=== PATIENT | female | born 1985 | race Hispanic/Latino ===

== ENCOUNTER 2017-07-24 23:27 | Emergency (ER) | payer SELFPAY ==
[~2017-07-24] VITALS: Ht 157.5 cm; Wt 98.8 kg
[~2017-07-24 23:27] MED LIST: ATENOLOL25 MG PO; ATIVAN1 MG PO; CLONAZEPAM1 M1 PO; CLONAZEPAM1 MG PO; HYDROXYZINE HCL25 M1 PO; METHIMAZOLE5 MG PO; POTASSIUM IODIDE PO; PRE-NATAL PO; PREVACID30 M2 PO; ULTRAM50 M1 PO
[2017-07-24] MEDS ORDERED: LEVOTHYROXIN25 MC1 PO (23:36)
[2017-07-24] MEDS ORDERED: KLONOPIN1 MG PO (23:37)
[2017-07-25 00:15] LABS: HEMATOCRIT 34.1 % (37.0-47.0); IMMATURE GRANULOCYTES 0.3 % (0.0-1.0); MEAN CELL VOLUME 88.3 fL CALC (80.0-100.0); MEAN CORPUSCULAR HGB 31.1 pG CALC (26.0-32.0); MEAN CORPUSCULAR HGB CONC 35.2 g/L CALC (32.0-36.0); NEUT# 5.26 thou/uL (2.00-7.15); RED BLOOD COUNT 3.86 mill/uL (4.20-5.60)
[2017-07-25 00:26] LABS: ALBUMIN 4.2 g/dL (3.2-5.0); ALKALINE PHOSPHATASE 58 u/l (38-126); ANION GAP 13 (6-22 (CALC)); BILIRUBIN, TOTAL 0.3 mg/dL (0.0-1.4); BUN 14 mg/dL (7-17); BUN/CREATININE RATIO 24 (12-20 (CALC)); CALCIUM 9.5 mg/dL (8.4-10.2); CARBON DIOXIDE 25 mmol/l (22-30); CHLORIDE 106 mmol/l (95-108); CREATININE 0.6 mg/dL (0.5-1.0); GFR > 60 ML/MIN (>=60 (CALC)); GFR FOR AFR.AMER. > 60 ML/MIN (>=60 (CALC)); GLUCOSE 95 mg/dL (65-105); POTASSIUM 3.6 mmol/l (3.5-5.1); SGOT/AST 18 u/l (14-36); SGPT/ALT 37 u/l (9-52); SODIUM 141 mmol/l (137-146); TOTAL PROTEIN 8.1 g/dL (6.3-8.2)
[2017-07-25 00:38] LABS: MYOGLOBIN 17 ng/mL (0 - 62)
[2017-07-25 01:45] VITALS: BP 123/87
[2017-07-25 02:33] LABS: TSH, 3RD GENERATION 3.88 uIU/mL (0.47 - 4.68)
== END 2017-07-25 01:45 | disposition home or self-care (01) | DRG 313 ==
LOC: ED 23:27
PROVIDERS: Emergency Medicine
DX: R07.89 Other chest pain (principal); I10 Essential (primary) hypertension; F41.9 Anxiety disorder, unspecified; E04.9 Nontoxic goiter, unspecified

== ENCOUNTER 2017-08-10 15:07 | Emergency (ER) | payer SELFPAY ==
[~2017-08-10] VITALS: Ht 157.5 cm; Wt 100.0 kg
[~2017-08-10 15:07] MED LIST changes: +KLONOPIN1 MG PO; +LEVOTHYROXIN25 MC1 PO
[2017-08-10] MEDS ORDERED: LEXAPRO10 MG PO (15:17)
[2017-08-10] MEDS ORDERED: LEVOTHYROXIN50 MCG PO (15:25)
[2017-08-10] MEDS ORDERED: CLONAZEPAM1 MG PO (15:26)
[2017-08-10 15:30] VITALS: BP 115/69
== END 2017-08-10 15:52 | disposition home or self-care (01) | DRG 880 ==
LOC: ED 15:07
DX: F41.9 Anxiety disorder, unspecified (principal); R42 Dizziness and giddiness; R00.2 Palpitations
CPT/HCPCS: J2060

== ENCOUNTER 2018-02-08 10:52 | Emergency (ER) | payer SELFPAY ==
[~2018-02-08] VITALS: Ht 157.5 cm; Wt 106.0 kg
[~2018-02-08 10:52] MED LIST changes: +LEVOTHYROXIN50 MCG PO; +LEXAPRO10 MG PO
[2018-02-08 12:11] LABS: URINE BILIRUBIN - DIPSTICK NEGATIVE (NEGATIVE); URINE BLOOD DIPSTICK SMALL (NEGATIVE); URINE COLOR YELLOW; URINE GLUCOSE - DIPSTICK NEGATIVE (NEGATIVE); URINE KETONE TRACE mg/dL (NEGATIVE); URINE LEUK ESTERASE NEGATIVE (NEGATIVE); URINE NITRITE - DIPSTICK NEGATIVE (Negative); URINE PH 6.5 (4.5-8.0); URINE PROTEIN - DIPSTICK NEGATIVE (NEG-TRACE); URINE SPECIFIC GRAVITY 1.025; URINE UROBILINOGEN - DIPSTICK 0.2 E.U./dL (0.2)
[2018-02-08 12:17] LABS: URINE CLARITY CLEAR
[2018-02-08 12:47] VITALS: BP 109/70
== END 2018-02-08 12:47 | disposition home or self-care (01) | DRG 781 ==
LOC: ED 10:52
PROVIDERS: Family Medicine
DX: O26.891 Other specified pregnancy related conditions, first trimester (principal); M54.5 Low back pain; R10.2 Pelvic and perineal pain; Z3A.09 9 weeks gestation of pregnancy

== ENCOUNTER 2018-03-15 20:43 | Emergency (ER) | payer SELFPAY ==
[~2018-03-15] VITALS: Ht 157.5 cm; Wt 106.8 kg
[2018-03-15 21:00] VITALS: BP 125/89
[2018-03-15] MEDS ORDERED: PRENATA3 PO (21:08)
[2018-03-15 22:27] LABS: URINE BILIRUBIN - DIPSTICK NEGATIVE (NEGATIVE); URINE BLOOD DIPSTICK TRACE-INTACT (NEGATIVE); URINE COLOR YELLOW; URINE GLUCOSE - DIPSTICK NEGATIVE (NEGATIVE); URINE KETONE NEGATIVE (NEGATIVE); URINE LEUK ESTERASE NEGATIVE (NEGATIVE); URINE NITRITE - DIPSTICK NEGATIVE (Negative); URINE PH 7.5 (4.5-8.0); URINE PROTEIN - DIPSTICK NEGATIVE (NEG-TRACE); URINE UROBILINOGEN - DIPSTICK 0.2 E.U./dL (0.2)
[2018-03-15 22:31] LABS: URINE CLARITY CLEAR
[2018-03-15 22:40] LABS: INFLUENZA A NONE DETECTED (NONE DETECT); INFLUENZA B NONE DETECTED (NONE DETECT)
[2018-03-15] MEDS ORDERED: AMOXICILLIN500 MG PO (22:42)
== END 2018-03-15 23:05 | disposition home or self-care (01) | DRG 781 ==
LOC: ED 20:43
PROVIDERS: Emergency Medicine
DX: O99.519 Diseases of the respiratory system complicating pregnancy, unspecified trimester (principal); E03.9 Hypothyroidism, unspecified; J02.9 Acute pharyngitis, unspecified; O99.280 Endocrine, nutritional and metabolic diseases complicating pregnancy, unspecified trimester; Z3A.00 Weeks of gestation of pregnancy not specified

== ENCOUNTER 2018-05-20 16:15 | Emergency (ER) | payer SELFPAY ==
[~2018-05-20] VITALS: Ht 157.5 cm; Wt 110.0 kg
[~2018-05-20 16:15] MED LIST changes: +AMOXICILLIN500 MG PO; +PRENATA3 PO
[2018-05-20 17:15] VITALS: BP 110/61
== END 2018-05-20 17:15 | disposition home or self-care (01) | DRG 149 ==
LOC: ED 16:15
DX: R42 Dizziness and giddiness (principal); O99.282 Endocrine, nutritional and metabolic diseases complicating pregnancy, second trimester; E03.9 Hypothyroidism, unspecified; O99.342 Other mental disorders complicating pregnancy, second trimester; F41.9 Anxiety disorder, unspecified; Z79.899 Other long term (current) drug therapy; Z3A.20 20 weeks gestation of pregnancy

== ENCOUNTER 2018-08-04 02:26 | Emergency (ER) | payer SELFPAY ==
[~2018-08-04] VITALS: Ht 157.5 cm; Wt 110.2 kg
[2018-08-04 02:48] VITALS: BP 134/63
== END 2018-08-04 03:11 | DRG 781 ==
LOC: ED 02:26
DX: O26.893 Other specified pregnancy related conditions, third trimester (principal); R10.30 Lower abdominal pain, unspecified; O99.283 Endocrine, nutritional and metabolic diseases complicating pregnancy, third trimester; E03.9 Hypothyroidism, unspecified; O99.343 Other mental disorders complicating pregnancy, third trimester; F41.9 Anxiety disorder, unspecified; Z3A.35 35 weeks gestation of pregnancy

== ENCOUNTER 2018-12-23 22:53 | Emergency (ER) | payer SELFPAY ==
[~2018-12-23] VITALS: Ht 157.5 cm; Wt 105.0 kg
[2018-12-23 23:48] LABS: HEMATOCRIT 37.6 % (37.0-47.0); HEMOGLOBIN 12.7 g/dl (12.0-16.0); IMMATURE GRANULOCYTES 0.5 % (0.0-5.0); MEAN CELL VOLUME 86.6 fL CALC (80.0-100.0); MEAN CORPUSCULAR HGB 29.3 pG CALC (26.0-32.0); MEAN CORPUSCULAR HGB CONC 33.8 g/L CALC (32.0-36.0); NEUT# 5.07 thou/uL (2.00-7.15); RED BLOOD COUNT 4.34 mill/uL (4.20-5.60); RED CELL DISTRI WIDTH 14.3 % (11.5-15.5)
[2018-12-23 23:48] LABS: URINE BILIRUBIN - DIPSTICK NEGATIVE (NEGATIVE); URINE BLOOD DIPSTICK TRACE-INTACT (NEGATIVE); URINE COLOR YELLOW; URINE GLUCOSE - DIPSTICK NEGATIVE (NEGATIVE); URINE KETONE TRACE mg/dL (NEGATIVE); URINE LEUK ESTERASE TRACE (NEGATIVE); URINE NITRITE - DIPSTICK NEGATIVE (Negative); URINE PROTEIN - DIPSTICK TRACE mg/dL (NEG-TRACE); URINE SPECIFIC GRAVITY 1.025; URINE UROBILINOGEN - DIPSTICK 0.2 E.U./dL (0.2)
[2018-12-23] MEDS ORDERED: CLONAZEPAM1 MG PO (23:49)
[2018-12-23 23:55] LABS: URINE BACTERIA FEW hpf; URINE CALCIUM OXALATE CRYSTALS FEW lpf; URINE MUCUS MODERATE hpf (NONE-FEW); URINE SQUAMOUS EPITHELIAL CELL MANY EPI/hpf (0-FEW)
[2018-12-24 00:01] LABS: ALBUMIN 4.8 g/dL (3.2-5.0); ALKALINE PHOSPHATASE 73 u/l (38-126); ANION GAP 17 (6-22 (CALC)); BILIRUBIN, TOTAL 0.5 mg/dL (0.0-1.4); BUN 18 mg/dL (7-17); BUN/CREATININE RATIO 28 (12-20 (CALC)); CARBON DIOXIDE 24 mmol/l (22-30); CHLORIDE 103 mmol/l (95-108); CREATININE 0.6 mg/dL (0.5-1.0); GFR > 60 ML/MIN (>=60 (CALC)); GFR FOR AFR.AMER. > 60 ML/MIN (>=60 (CALC)); POTASSIUM 3.5 mmol/l (3.5-5.1); SGOT/AST 28 u/l (14-36); SODIUM 140 mmol/l (137-146); TOTAL PROTEIN 8.6 g/dL (6.3-8.2)
[2018-12-24 00:13] LABS: MYOGLOBIN 30 ng/mL (0 - 62)
[2018-12-24] MEDS ORDERED: TORADOL PO (01:29)
[2018-12-24 01:38] VITALS: BP 139/86
== END 2018-12-24 01:38 | disposition home or self-care (01) | DRG 206 ==
LOC: ED 22:53
PROVIDERS: Family Medicine
DX: M94.0 Chondrocostal junction syndrome [Tietze] (principal); F41.9 Anxiety disorder, unspecified; E03.9 Hypothyroidism, unspecified
CPT/HCPCS: Q9967

== ENCOUNTER → 2019-01-26 | Outpatient (REF) | payer SELFPAY ==
[~2019-01-26] MED LIST changes: +TORADOL PO
[2019-01-26 13:59] LABS: GFR > 60 ML/MIN (>=60 (CALC)); GFR FOR AFR.AMER. > 60 ML/MIN (>=60 (CALC))
== END | disposition home or self-care (01) | DRG 176 ==
LOC: CT 13:18
PROVIDERS: ATTEND Family Medicine
DX: I26.99 Other pulmonary embolism without acute cor pulmonale (principal)

== ENCOUNTER 2019-04-10 00:33 | Emergency (ER) | payer SELFPAY ==
[~2019-04-10] VITALS: Ht 157.5 cm; Wt 105.0 kg
[2019-04-10] MEDS ORDERED: FIORICET PO (01:17)
[2019-04-10 01:33] VITALS: BP 127/74
== END 2019-04-10 01:33 | disposition home or self-care (01) | DRG 103 ==
LOC: ED 00:33
DX: G43.909 Migraine, unspecified, not intractable, without status migrainosus (principal); R09.81 Nasal congestion; R11.0 Nausea

== ENCOUNTER 2019-12-13 | Emergency (ER) | payer SELFPAY ==
[~2019-12-13] MED LIST changes: +FIORICET PO
[2019-12-13 00:49] LABS: HEMATOCRIT 37.8 % (37.0-47.0); HEMOGLOBIN 12.9 g/dl (12.0-16.0); IMMATURE GRANULOCYTES 0.3 % (0.0-5.0); MEAN CELL VOLUME 87.1 fL CALC (80.0-100.0); MEAN CORPUSCULAR HGB 29.7 pG CALC (26.0-32.0); MEAN CORPUSCULAR HGB CONC 34.1 g/L CALC (32.0-36.0); NEUT# 5.12 thou/uL (2.00-7.15); RED BLOOD COUNT 4.34 mill/uL (4.20-5.60); RED CELL DISTRI WIDTH 12.7 % (11.5-15.5)
[2019-12-13 01:15] LABS: ANION GAP 15 (6-22 (CALC)); BUN 14 mg/dL (7-17); BUN/CREATININE RATIO 30 (12-20 (CALC)); CARBON DIOXIDE 25 mmol/l (22-30); CHLORIDE 101 mmol/l (95-108); CREATININE 0.5 mg/dL (0.5-1.0); GFR > 60 ML/MIN (>=60 (CALC)); GFR FOR AFR.AMER. > 60 ML/MIN (>=60 (CALC)); POTASSIUM 3.5 mmol/l (3.5-5.1); SODIUM 138 mmol/l (137-146)
== END 2019-12-13 02:20 | disposition home or self-care (01) | DRG 313 ==
PROVIDERS: Family Medicine
DX: R07.9 Chest pain, unspecified (principal); E03.9 Hypothyroidism, unspecified

== ENCOUNTER 2020-02-02 00:46 | Emergency (ER) | payer SELFPAY ==
[2020-02-02] MEDS ORDERED: TRAZODONE HCL50 MG PO (01:39)
[2020-02-02] MEDS ORDERED: CLONAZEPAM1 MG PO (01:39)
[2020-02-02] MEDS ORDERED: CETIRIZINE10 MG PO (01:40)
[2020-02-02] MEDS ORDERED: LEVOTHYROXIN50 MCG PO (01:40)
[2020-02-02 01:59] VITALS: BP 116/70
== END 2020-02-02 01:58 | disposition home or self-care (01) | DRG 156 ==
LOC: ED 00:46
DX: R68.2 Dry mouth, unspecified (principal); R00.2 Palpitations; T43.215A Adverse effect of selective serotonin and norepinephrine reuptake inhibitors, initial encounter; E03.9 Hypothyroidism, unspecified; F41.9 Anxiety disorder, unspecified

== ENCOUNTER 2021-01-17 07:33 | Emergency (ER) | payer SELFPAY ==
[~2021-01-17] VITALS: Ht 157.5 cm; Wt 105.0 kg
[~2021-01-17 07:33] MED LIST changes: +CETIRIZINE10 MG PO; +TRAZODONE HCL50 MG PO
[2021-01-17 08:06] LABS: HEMOGLOBIN 12.1 g/dl (12.0-16.0); IMMATURE GRANULOCYTES 0.3 % (0.0-5.0); MEAN CELL VOLUME 88.5 fL CALC (80.0-100.0); MEAN CORPUSCULAR HGB 29.7 pG CALC (26.0-32.0); MEAN CORPUSCULAR HGB CONC 33.6 g/dL CAL (32.0-36.0); NEUT# 5.01 thou/uL (2.00-7.15); RED BLOOD COUNT 4.07 mill/uL (4.20-5.60); RED CELL DISTRI WIDTH 12.4 % (11.5-15.5)
[2021-01-17 08:17] LABS: ALBUMIN 4.4 g/dL (3.2-5.0); ALKALINE PHOSPHATASE 82 u/l (38-126); AMYLASE 65 u/l (30-110); ANION GAP 14 (6-22 (CALC)); BILIRUBIN, TOTAL 0.9 mg/dL (0.0-1.4); BUN 11 mg/dL (7-17); BUN/CREATININE RATIO 21 (12-20 (CALC)); CARBON DIOXIDE 23 mmol/l (22-30); CHLORIDE 103 mmol/l (95-108); CREATININE 0.5 mg/dL (0.5-1.0); GFR > 60 ML/MIN (>=60 (CALC)); GFR FOR AFR.AMER. > 60 ML/MIN (>=60 (CALC)); LIPASE 74 u/l (23-300); POTASSIUM 3.6 mmol/l (3.5-5.1); SGOT/AST 24 u/l (14-36); SODIUM 136 mmol/l (137-146); TOTAL PROTEIN 7.8 g/dL (6.3-8.2)
[2021-01-17 09:26] LABS: URINE BILIRUBIN - DIPSTICK NEGATIVE (NEGATIVE); URINE BLOOD DIPSTICK TRACE-LYSED (NEGATIVE); URINE COLOR YELLOW; URINE GLUCOSE - DIPSTICK NEGATIVE (NEGATIVE); URINE KETONE NEGATIVE (NEGATIVE); URINE LEUK ESTERASE NEGATIVE (NEGATIVE); URINE NITRITE - DIPSTICK NEGATIVE (Negative); URINE PROTEIN - DIPSTICK NEGATIVE (NEG-TRACE); URINE UROBILINOGEN - DIPSTICK 0.2 E.U./dL (0.2)
[2021-01-17] MEDS ORDERED: NAPROXEN DR500 MG PO (09:37)
[2021-01-17 09:40] VITALS: BP 110/70
== END 2021-01-17 09:40 | disposition home or self-care (01) | DRG 206 ==
LOC: ED 07:33
DX: M94.0 Chondrocostal junction syndrome [Tietze] (principal); E03.9 Hypothyroidism, unspecified; F41.9 Anxiety disorder, unspecified

== ENCOUNTER 2021-07-11 22:55 | Emergency (ER) | payer SELFPAY ==
[~2021-07-11] VITALS: Ht 157.5 cm; Wt 108.0 kg
[~2021-07-11 22:55] MED LIST changes: +NAPROXEN DR500 MG PO
[2021-07-12 01:33] LABS: URINE BILIRUBIN - DIPSTICK NEGATIVE (NEGATIVE); URINE BLOOD DIPSTICK NEGATIVE (NEGATIVE); URINE COLOR YELLOW; URINE GLUCOSE - DIPSTICK NEGATIVE (NEGATIVE); URINE KETONE NEGATIVE (NEGATIVE); URINE LEUK ESTERASE NEGATIVE (NEGATIVE); URINE PROTEIN - DIPSTICK TRACE mg/dL (NEG-TRACE); URINE SPECIFIC GRAVITY >=1.030; URINE UROBILINOGEN - DIPSTICK 0.2 E.U./dL (0.2)
[2021-07-12 01:34] LABS: URINE NITRITE - DIPSTICK NEGATIVE (Negative)
[2021-07-12 02:03] LABS: HEMATOCRIT 39.1 % (37.0-47.0); IMMATURE GRANULOCYTES 0.4 % (0.0-5.0); MEAN CELL VOLUME 88.7 fL CALC (80.0-100.0); MEAN CORPUSCULAR HGB 29.5 pG CALC (26.0-32.0); MEAN CORPUSCULAR HGB CONC 33.2 g/dL CAL (32.0-36.0); NEUT# 4.64 thou/uL (2.00-7.15); RED BLOOD COUNT 4.41 mill/uL (4.20-5.60); RED CELL DISTRI WIDTH 12.5 % (11.5-15.5)
[2021-07-12 02:15] LABS: ALBUMIN 4.2 g/dL (3.2-5.0); ALKALINE PHOSPHATASE 83 u/l (38-126); AMYLASE 71 u/l (30-110); ANION GAP 12 (6-22 (CALC)); BUN 16 mg/dL (7-17); BUN/CREATININE RATIO 34 (12-20 (CALC)); CARBON DIOXIDE 26 mmol/l (22-30); CHLORIDE 103 mmol/l (95-108); CREATININE 0.5 mg/dL (0.5-1.0); GFR > 60 ML/MIN (>=60 (CALC)); GFR FOR AFR.AMER. > 60 ML/MIN (>=60 (CALC)); LIPASE 83 u/l (23-300); POTASSIUM 3.7 mmol/l (3.5-5.1); SGOT/AST 34 u/l (14-36); SODIUM 138 mmol/l (137-146); TOTAL PROTEIN 7.7 g/dL (6.3-8.2)
[2021-07-12 02:17] LABS: BILIRUBIN, TOTAL 0.3 mg/dL (0.0-1.4)
[2021-07-12] MEDS ORDERED: NAPROXEN500 MG PO (04:18)
[2021-07-12 06:30] VITALS: BP 138/71
== END 2021-07-12 06:30 | disposition home or self-care (01) | DRG 395 ==
LOC: ED 22:55
PROVIDERS: Emergency Medicine
DX: K42.9 Umbilical hernia without obstruction or gangrene (principal); E03.9 Hypothyroidism, unspecified; F41.9 Anxiety disorder, unspecified
CPT/HCPCS: Q9967

== ENCOUNTER 2022-02-03 08:06 | Day surgery (SDC) | payer SELFPAY ==
[~2022-02-03] VITALS: Ht 157.5 cm; Wt 104.3 kg
[~2022-02-03 08:06] MED LIST changes: +AF-MIGRAIN1 PO; +ASPIRIN 81 LOW81 MG PO; +NAPROXEN500 MG PO; +VITAMIN D1000 UNIT PO
[2022-02-03] MEDS ORDERED: PERCOCET 5/325M1 TAB PO (10:17)
[2022-02-03 11:20] VITALS: BP 135/89
== END 2022-02-03 11:27 | disposition home or self-care (01) | DRG 355 ==
LOC: ORM 08:06
PROVIDERS: ATTEND Surgery
PROC: 0WQF0ZZ Repair Abdominal Wall, Open Approach (ICD-10-PCS; principal; 2022-02-03)
PROC: 0WJF4ZZ Inspection of Abdominal Wall, Percutaneous Endoscopic Approach (ICD-10-PCS; 2022-02-03)
DX: K42.9 Umbilical hernia without obstruction or gangrene (principal); E89.0 Postprocedural hypothyroidism
CPT/HCPCS: J0131; J1100